=== PATIENT | male | born 1990 | race Asian ===

== ENCOUNTER → 2016-05-26 | Outpatient (CLI) | payer OTHER ==
[~2016-05-26] MED LIST: IBU800 M1 PO; NAPROSYN500 MG PO; NO HOME MEDICATIONS; NORCO 325 MG-51 TAB PO
== END ==
LOC: COL.RAD 08:15
DX: M93.871 Other specified osteochondropathies, right ankle and foot (principal); S93.491A Sprain of other ligament of right ankle, initial encounter; X58.XXXA Exposure to other specified factors, initial encounter; M76.61 Achilles tendinitis, right leg; M77.51 Other enthesopathy of right foot and ankle; M67.873 Other specified disorders of tendon, right ankle and foot; M19.171 Post-traumatic osteoarthritis, right ankle and foot